=== PATIENT | male | born 1995 | race Caucasian/White ===

== ENCOUNTER 2021-12-24 16:18 | Emergency (ER) | payer MEDICAID ==
[~2021-12-24] VITALS: Ht 188 cm; Wt 100.0 kg
[2021-12-24] MEDS ORDERED: ELVI1TAB3 PO (16:46)
[2021-12-24] MEDS ORDERED: GABA-1181 PO (16:46)
[2021-12-24] MEDS ORDERED: LOSA-382 PO (16:46)
[2021-12-24] MEDS ORDERED: LAMO25TA25 PO (16:46)
[2021-12-24] MEDS ORDERED: OLAN2.5T29 PO (16:46)
[2021-12-24 20:28] VITALS: BP 135/69
== END 2021-12-24 22:00 | disposition home or self-care (01) ==
LOC: EMS 16:21
DX: T40.411A Poisoning by fentanyl or fentanyl analogs, accidental (unintentional), initial encounter (principal); F11.90 Opioid use, unspecified, uncomplicated; Z87.19 Personal history of other diseases of the digestive system; Z98.890 Other specified postprocedural states; Z88.2 Allergy status to sulfonamides; Y92.511 Restaurant or cafe as the place of occurrence of the external cause
CPT/HCPCS: 99285; Z7502